=== PATIENT | male | born 1965 | race Hispanic/Latino ===

== ENCOUNTER 2017-10-03 05:35 | Emergency (ER) | payer BC, OTHER | END 2017-10-03 06:27 | disposition home or self-care (01) | LOC: SCSER 05:35 | DX: S16.1XXA Strain of muscle, fascia and tendon at neck level, initial encounter (principal); X50.3XXA Overexertion from repetitive movements, initial encounter | CPT/HCPCS: 99283 ==

== ENCOUNTER 2017-10-04 02:57 | Emergency (ER) | payer BC ==
[2017-10-04] MEDS ORDERED: Meclizine HCl 25 MG TAB ONE (03:50)
== END 2017-10-04 04:04 | disposition home or self-care (01) ==
LOC: SCSER 02:57
DX: H81.10 Benign paroxysmal vertigo, unspecified ear (principal); H61.23 Impacted cerumen, bilateral; Z79.899 Other long term (current) drug therapy
CPT/HCPCS: 99283

== ENCOUNTER 2019-05-18 12:15 | Outpatient (CLI) | payer BC ==
--- NOTE | 2019-05-18 12:33 | RAD ---
Exam: Right shoulder 3 views: HISTORY: Acute pain right shoulder COMPARISON: None FINDINGS: Mild A/C joint arthrosis. No evidence for fracture, dislocation, or other significant acute osseous abnormality. IMPRESSION: No significant acute process.
== END 2019-05-18 12:16 | disposition home or self-care (01) ==
LOC: RAD 12:15
PROVIDERS: ATTEND Nurse Practitioner Family
DX: M25.511 Pain in right shoulder (principal)